=== PATIENT | female | born 1975 | race Caucasian/White ===

== ENCOUNTER 2022-08-23 09:35 | Emergency (ER) | payer OTHER ==
[2022-08-23 09:43] VITALS: BP 113/80; PULSE 91; RESP 18; TEMP 98.1; BMI 23.3
== END 2022-08-23 10:30 | disposition home or self-care (01) ==
LOC: FER 09:35
DX: S70.311A Abrasion, right thigh, initial encounter (principal); S80.212A Abrasion, left knee, initial encounter; W13.3XXA Fall through floor, initial encounter
CPT/HCPCS: 99282-25

== ENCOUNTER 2023-09-19 23:49 | Emergency (ER) | payer OTHER ==
[2023-09-20 00:08] VITALS: RESP 18; BMI 24.2
[2023-09-20 01:06] LABS: URINE APPEARANCE CLEAR; URINE BILIRUBIN NEGATIVE (NEGATIVE); URINE COLOR YELLOW; URINE GLUCOSE (UA) NEGATIVE (NEGATIVE); URINE KETONE NEGATIVE (NEGATIVE); URINE LEUK ESTERASE NEGATIVE (NEGATIVE); URINE NITRITE NEGATIVE (NEGATIVE); URINE PROTEIN NEGATIVE (NEGATIVE); URINE UROBILINOGEN 0.2 mg/dL (0.2-1.0)
[2023-09-20 01:17] LABS: HEMATOCRIT 39.8 % (32.4-45.2); HEMOGLOBIN 13.8 GM/dL (10.7-15.3); MCH 32.4 pg (25.7-33.7); MCHC 34.6 g/dl (32.0-36.0); MEAN CELL VOLUME 93.4 fl (80-96); MEAN PLT VOLUME 8.6 fl (7.5-11.1); PLATELET COUNT 238 10^3/uL (134-434); RBC 4.26 M/mm3 (3.60-5.2); RDW 13.2 % (11.6-15.6); WHITE BLOOD COUNT 6.6 K/mm3 (4.0-10.0)
[2023-09-20 01:25] LABS: CHLORIDE 104 mmol/L (98-107); POTASSIUM 4.1 mmol/L (3.5-5.1); SODIUM 138 mmol/L (136-145)
[2023-09-20 01:29] LABS: ALBUMIN 4.1 g/dl (3.4-5.0); ANION GAP 6 mmol/L (4-13); BLOOD UREA NITROGEN 13.2 mg/dL (7-18); CALCIUM 10.1 mg/dL (8.5-10.1); CO2 28 mmol/L (21-32); GLUCOSE,RANDOM 93 mg/dL (74-106)
[2023-09-20 01:32] LABS: CREATININE 0.7 mg/dL (0.55-1.3); SGOT/AST 34 U/L (15-37); SGPT/ALT 36 U/L (13-61)
[2023-09-20 01:34] LABS: BILIRUBIN,TOTAL 0.3 mg/dL (0.2-1); TOT PROT 7.8 g/dl (6.4-8.2)
[2023-09-20 01:35] LABS: ALK PHOS 57 U/L (45-117)
[2023-09-20 06:00] VITALS: BP 107/73; PULSE 88; TEMP 97.9
[2023-09-20] MEDS: PARoxetine HCL 10 MG TABLET PO ONE (08:28)
== END 2023-09-20 09:12 | disposition home or self-care (01) ==
LOC: FER 23:49
DX: R07.89 Other chest pain (principal); R06.02 Shortness of breath; R10.13 Epigastric pain; M79.601 Pain in right arm
CPT/HCPCS: 36415; 71045-TC-FY; 71275-TC; 80053; 81003; 82550; 84484; 85027; 85379; 93005; 99285-25; Q9967